=== PATIENT | female | born 2005 | race Caucasian/White ===

== ENCOUNTER 2024-01-20 14:11 | Emergency (ER) | payer BC ==
[~2024-01-20] VITALS: Ht 170.2 cm; Wt 81.8 kg
[2024-01-20 14:17] VITALS: TEMP 98.6
--- NOTE | 2024-01-20 14:38 | NUR ---
x ray at bedside.
[2024-01-20] MEDS: HYDROcodone/acetaminophen 5mg/325mg tablet PO ONE (16:15)
[2024-01-20] MEDS: ondansetron 4mg rapidly disintigrating tab PO ONE (16:16)
[2024-01-20] MEDS: ketorolac trometh 30MG/ML vial 30 MG/ML VIAL IM ONE (16:16)
[2024-01-20 16:50] VITALS: BP 115/78; PULSE 100; RESP 17; O2SAT 95
== END 2024-01-20 16:33 | disposition home or self-care (01) ==
LOC: ER 14:12
DX: S93.402A Sprain of unspecified ligament of left ankle, initial encounter (principal); X50.1XXA Overexertion from prolonged static or awkward postures, initial encounter; Y93.89 Activity, other specified; Y92.89 Other specified places as the place of occurrence of the external cause; Y99.8 Other external cause status
CPT/HCPCS: 29515; 73610; 96372; 99284; J1885; L4360; A6449